=== PATIENT | female | born 1990 | race African-American/Black ===

== ENCOUNTER 2019-11-14 09:23 | Outpatient (CLI) | payer OTHER, SELFPAY ==
--- NOTE | ~2019-11-14 | US_ITS ---
EXAMINATION: US OB <= 14 weeks fetus DATE: 11/14/2019 09:58 INDICATION: Establish dating of during estimated late second trimester of . TECHNIQUE: Real-time pelvic ultrasound utilizing both a transvaginal and transabdominal probe was pe rformed. The interpreting radiologist was not present for the study. COMPARISON: None. FINDINGS: The uterus measures 11.7 x 9.1 x 11.7 cm. There is an intrauterine gestational sac with single intra uterine fetus. The crown rump length measures 4.5 cm, which correlates with an estimated gestational age of 11 weeks and 2 days. heart motion is identified measuring 171 beats per minute (bpm) by M-mode Doppler. There is a 12 x 8 x 10 cm hypoechoic region along the margin of the gestational sac w hich could represent a small subchorionic hematoma. The right ovary is not visualized The left ovary measures 4.5 x 1.9 x 2.7 cm. Basilar flows identifie d within the left ovary on color Doppler. There is no free fluid in the pelvis. IMPRESSION: 1. Single living fetus with heart rate of 171 bpm. 2. Gestational age by ultrasound of 11 weeks 2 day(s) +/- 7 day(s) with ultrasound estimated date of delivery ([facility]) of 06/02/2020. 3. Possible small subchorionic hematoma. Reviewed, dictated and finalized at location A. [facility] IMPRESSION: 1. Single living fetus with heart rate of 171 bpm. 2. Gestational age by ultrasound of 11 weeks 2 day(s) +/- 7 day(s) with ultras ound estimated date of delivery ([facility]) of 06/02/2020. 3. Possible small subchorionic hematoma.
== END 2019-11-14 09:24 | disposition home or self-care (01) ==
LOC: ANHIMG 09:26
PROVIDERS: Visit Provider Obstetrics & Gynecology
DX: O26.841 Uterine size-date discrepancy, first trimester (principal); Z3A.11 11 weeks gestation of pregnancy
CPT/HCPCS: 76801

== ENCOUNTER 2020-02-16 12:18 | Outpatient (CLI) | payer OTHER, SELFPAY ==
[2020-02-16 14:15] LABS: Beta HCG Quantitative 8.12 mIU/ML
== END 2020-02-16 12:19 | disposition home or self-care (01) ==
PROVIDERS: PCP Obstetrics & Gynecology; Visit Provider Obstetrics & Gynecology
DX: O03.4 Incomplete spontaneous abortion without complication (principal)
CPT/HCPCS: 36415; 84702